=== PATIENT | female | born 1985 | race Caucasian/White ===

== ENCOUNTER 2020-10-12 13:24 | Inpatient (IN) | payer BC, SELFPAY ==
[~2020-10-12] VITALS: Ht 121.9 cm; Wt 58.1 kg
[2020-10-12 14:10] VITALS: BP_SYST 94
[2020-10-12 15:39] LABS: BASOPHILS % (AUTO) 0.1 % (0.0-2.0); HEMATOCRIT 25.8 % (36-48); HEMOGLOBIN 8.3 g/dL (12.0-16.0); LYMPHOCYTES % (AUTO) 4.8 % (20.5-51.5); MEAN CORPUSCULAR HEMOGLOBIN 26 pg (27-31); MEAN CORPUSCULAR HGB CONC 32 % (32-36); MEAN CORPUSCULAR VOLUME 79 fL (79.0-98.0); MONOCYTES # (AUTO) 0.7 K/uL (0.0-1.0); MONOCYTES % (AUTO) 3.5 % (1.7-9.3); NEUTROPHILS # (AUTO) 18.5 K/uL (1.8-7.7); NEUTROPHILS % (AUTO) 91.6 % (40.0-70.0); PLATELET COUNT (AUTO) 410 K/uL (130-430); RED BLOOD CELL COUNT(AUTO) 3.25 MIL/uL (4.2-6.2); WHITE BLOOD COUNT (AUTO) 20.2 K/uL (4.8-10.8)
[2020-10-12 16:09] LABS: CALCIUM 7.8 mg/dL (8.4-11.0); CREATININE 0.55 mg/dL (0.55-1.30)
[2020-10-12 16:15] LABS: ALBUMIN 1.6 g/dL (3.4-4.8); TOTAL BILIRUBIN 1.1 mg/dL (0.0-1.0)
[2020-10-12 16:18] LABS: POTASSIUM 2.4 mmol/L (3.5-5.1)
[2020-10-12] MEDS ORDERED: PIPERACILLIN/TAZOBACTAM 3.375 GM/VIAL (ZOSYN) IV ONE (16:26)
[2020-10-12] MEDS ORDERED: VANCOMYCIN HCL 1000 MG/VIAL IV ONE (16:27)
[2020-10-12] MEDS ORDERED: PIPERACILLIN/TAZO 3.375 GM in NS 50 ML IV ONE (16:30)
[2020-10-12] MEDS ORDERED: CLINDAMYCIN 900 MG in D5W 100 ML IV ONE (16:30)
[2020-10-12] MEDS ORDERED: VANCOMYCIN HCL 1,000 MG in NS 250 ML IV ONE (16:30)
[2020-10-12 16:31] LABS: INR 1.2 (0.8-1.2); PROTHROMBIN TIME 12.4 SECS (9.5-12.5)
[2020-10-12] MEDS ORDERED: MAGNESIUM SULFATE 50 ML IV ONE ×2 (16:45→18:00)
[2020-10-12] MEDS ORDERED: KCL 40 mEq in D5W 1000 mL 1,000 ML IV ONE (16:45)
[2020-10-12] MEDS ORDERED: POTASSIUM CHLORIDE 20 MEQ TAB.PRT.SR PO ONE (16:45)
[2020-10-12] MEDS ORDERED: NOREPINEPHRINE 4 MG/4 ML VIAL IV ONE (18:40)
[2020-10-12] MEDS ORDERED: D5/0.45 NS 1,000 ML IV SCH (19:15)
[2020-10-12] MEDS ORDERED: NOREPINEPHRINE BITARTRATE 4 MG in NS 246 ML IV ONE (19:15)
[2020-10-12] MEDS: LR 1,000 ML IV SCH (19:30)
[2020-10-12] MEDS ORDERED: ACETAMINOPHEN 325 MG TABLET PO PRN (22:30)
[2020-10-12] MEDS ORDERED: HYDROcodone/ACETAMIN 5-325 MG TAB (NORCO/ VICODIN) PO PRN (22:30)
[2020-10-12] MEDS ORDERED: LORazepam 2 MG/ML VIAL IVP PRN (22:30)
[2020-10-12] MEDS ORDERED: HYDROcodone/ACETAMIN 10-325 MG TAB PO PRN (22:30)
[2020-10-12] MEDS ORDERED: MORPHINE 2 MG/ML INJ. SYRINGE IVP PRN (22:30)
[2020-10-12] MEDS ORDERED: NALOXONE HCL 0.4 MG/ML AMP (NARCAN) IVP PRN ×3 (22:30)
[2020-10-13] MEDS: ONDANSETRON HCL 4 MG/2 ML VIAL IVP PRN (00:39)
[2020-10-13 05:04] LABS: BASOPHILS % (AUTO) 0.2 % (0.0-2.0); EOSINOPHILS % (AUTO) 0.2 % (0.0-4.0); HEMATOCRIT 23.8 % (36-48); HEMOGLOBIN 7.6 g/dL (12.0-16.0); LYMPHOCYTES # (AUTO) 0.7 K/uL (1.0-5.5); LYMPHOCYTES % (AUTO) 3.7 % (20.5-51.5); MEAN CORPUSCULAR HEMOGLOBIN 26 pg (27-31); MEAN CORPUSCULAR HGB CONC 32 % (32-36); MEAN CORPUSCULAR VOLUME 80 fL (79.0-98.0); MONOCYTES # (AUTO) 1.3 K/uL (0.0-1.0); NEUTROPHILS # (AUTO) 16.8 K/uL (1.8-7.7); NEUTROPHILS % (AUTO) 88.9 % (40.0-70.0); PLATELET COUNT (AUTO) 314 K/uL (130-430); RED CELL DISTRIBUTION WIDTH 15.9 % (9.0-15.0); WHITE BLOOD COUNT (AUTO) 18.9 K/uL (4.8-10.8)
[2020-10-13 05:34] LABS: ALBUMIN 1.4 g/dL (3.4-4.8); CALCIUM 7.4 mg/dL (8.4-11.0); CREATININE 0.48 mg/dL (0.55-1.30); PHOSPHORUS 1.4 mg/dL (2.7-4.5); POTASSIUM 3.2 mmol/L (3.5-5.1); TOTAL BILIRUBIN 0.5 mg/dL (0.0-1.0)
[2020-10-13 05:52] LABS: ERYTHROCYTE SEDIMENTATION RATE 105 MM/HR (0-20)
[2020-10-13] MEDS ORDERED: HYDROmorphone 1 MG INJ. 1 MG/ML AMPUL IVP PRN (12:30)
[2020-10-13] MEDS ORDERED: ONDANSETRON HCL 4 MG/2 ML VIAL IVP PRN ×2 (12:30→17:30)
[2020-10-13] MEDS ORDERED: KETOROLAC TROMETHAMINE 30 MG VIAL IVP PRN (12:30)
[2020-10-13] MEDS ORDERED: MEPERIDINE HCL/PF 25 MG/ML DISP.SYRIN IVP PRN (12:30)
[2020-10-13] MEDS ORDERED: NACL 0.9% 1,000 ML IV SCH (12:30)
[2020-10-13] MEDS ORDERED: BUPIVACAINE /EPINEPHRINE/PF 0.25% 30 ML VIAL INJ ONE (13:35)
[2020-10-13] MEDS ORDERED: fentaNYL CITRATE/PF 100 MCG/2 ML AMP ONE (13:35)
[2020-10-13] MEDS ORDERED: LR 1,000 ML IV.SOLN IV ONE (13:35)
[2020-10-13] MEDS ORDERED: WATER FOR IRRIGATION,STERILE 1,000 ML IRRIG.SOLN IR ONE (13:35)
[2020-10-13] MEDS ORDERED: MIDAZOLAM HCL 5 MG/ML VIAL (VERSED) IV ONE (13:35)
[2020-10-13] MEDS ORDERED: NALOXONE HCL 0.4 MG/ML AMP (NARCAN) IVP PRN ×4 (14:15→17:30)
[2020-10-13] MEDS ORDERED: ACETAMINOPHEN 325 MG TABLET PO PRN ×3 (14:15→17:30)
[2020-10-13] MEDS ORDERED: D5/0.45 NS 1,000 ML IV SCH (14:15)
[2020-10-13] MEDS ORDERED: HYDROcodone/ACETAMIN 5-325 MG TAB (NORCO/ VICODIN) PO PRN ×2 (14:15→17:30)
[2020-10-13 16:00] VITALS: BP_SYST 149
[2020-10-13] MEDS: LR 1,000 ML IV SCH (16:00)
[2020-10-13] MEDS: VANCOMYCIN HCL 1,000 MG in NS 250 ML IV SCH ×2 (17:29→17:36)
[2020-10-13] MEDS ORDERED: LORazepam 2 MG/ML VIAL IVP PRN (17:30)
[2020-10-13] MEDS ORDERED: MORPHINE 2 MG/ML INJ. SYRINGE IVP PRN (17:30)
[2020-10-13] MEDS ORDERED: HYDROcodone/ACETAMIN 10-325 MG TAB PO PRN (17:30)
[2020-10-13] MEDS: PIPERACILLIN/TAZO 3.375/DEX-IS 50 ML IV SCH (17:35)
[2020-10-13 20:20] VITALS: BP_SYST 94
[2020-10-14 00:31] VITALS: BP_SYST 99
[2020-10-14] MEDS: PIPERACILLIN/TAZO 3.375/DEX-IS 50 ML IV SCH ×4 (00:55→18:42)
[2020-10-14] MEDS: LR 1,000 ML IV SCH ×3 (00:56→22:38)
[2020-10-14 08:00] VITALS: BP_SYST 98
[2020-10-14 08:02] LABS: BASOPHILS # (AUTO) 0.1 K/uL (0.0-0.2); BASOPHILS % (AUTO) 0.6 % (0.0-2.0); EOSINOPHILS # (AUTO) 0.1 K/uL (0.0-0.4); EOSINOPHILS % (AUTO) 0.9 % (0.0-4.0); HEMATOCRIT 23.4 % (36-48); HEMOGLOBIN 7.5 g/dL (12.0-16.0); LYMPHOCYTES # (AUTO) 1.7 K/uL (1.0-5.5); LYMPHOCYTES % (AUTO) 11.7 % (20.5-51.5); MEAN CORPUSCULAR HEMOGLOBIN 26 pg (27-31); MEAN CORPUSCULAR HGB CONC 32 % (32-36); MEAN CORPUSCULAR VOLUME 80 fL (79.0-98.0); MONOCYTES % (AUTO) 6.8 % (1.7-9.3); PLATELET COUNT (AUTO) 226 K/uL (130-430); RED BLOOD CELL COUNT(AUTO) 2.92 MIL/uL (4.2-6.2); RED CELL DISTRIBUTION WIDTH 16.4 % (9.0-15.0)
[2020-10-14 08:24] LABS: ALBUMIN 1.2 g/dL (3.4-4.8); CALCIUM 8.1 mg/dL (8.4-11.0); CREATININE 0.28 mg/dL (0.55-1.30); PHOSPHORUS 3.1 mg/dL (2.7-4.5); POTASSIUM 3.1 mmol/L (3.5-5.1); TOTAL BILIRUBIN 0.3 mg/dL (0.0-1.0)
[2020-10-14 09:37] LABS: C-REACTIVE PROTEIN QUANT 37.4 mg/dL (0-0.5)
[2020-10-14 11:06] LABS: ERYTHROCYTE SEDIMENTATION RATE 95 MM/HR (0-20)
[2020-10-14 12:01] VITALS: BP_SYST 94
[2020-10-14] MEDS: NORMAL SALINE 5 ML DISP.SYRIN IVF SCH ×2 (13:24→22:50)
[2020-10-14] MEDS ORDERED: POTASSIUM CHLORIDE 20 MEQ TAB.PRT.SR PO ONE (15:15)
[2020-10-14 16:00] VITALS: BP_SYST 106
[2020-10-14] MEDS ORDERED: GENTAMICIN 100 mg/50 mL NS 100 ML IV ONE (20:37)
[2020-10-14 21:00] VITALS: BP_SYST 105
[2020-10-14] MEDS ORDERED: GENTAMICIN SULFATE 400 MG in NS 100 ML IV ONE (21:00)
[2020-10-14] MEDS ORDERED: GENTAMICIN 80 mg/50 mL NS 50 ML IV ONE (21:06)
[2020-10-14] MEDS ORDERED: GENTAMICIN 120 mg/100 mL NS 100 ML IV ONE (21:07)
[2020-10-15 00:13] VITALS: BP_SYST 110
[2020-10-15] MEDS: PIPERACILLIN/TAZO 3.375/DEX-IS 50 ML IV SCH ×4 (01:32→18:09)
[2020-10-15] MEDS: NORMAL SALINE 5 ML DISP.SYRIN IVF SCH ×3 (05:09→23:18)
[2020-10-15] MEDS ORDERED: POTASSIUM CHLORIDE 20 MEQ TAB.PRT.SR PO ONE (07:45)
[2020-10-15 09:07] LABS: BASOPHILS # (AUTO) 0.1 K/uL (0.0-0.2); BASOPHILS % (AUTO) 0.9 % (0.0-2.0); EOSINOPHILS # (AUTO) 0.1 K/uL (0.0-0.4); EOSINOPHILS % (AUTO) 0.3 % (0.0-4.0); HEMOGLOBIN 8.2 g/dL (12.0-16.0); LYMPHOCYTES # (AUTO) 2.2 K/uL (1.0-5.5); LYMPHOCYTES % (AUTO) 13.7 % (20.5-51.5); MEAN CORPUSCULAR HEMOGLOBIN 25 pg (27-31); MEAN CORPUSCULAR HGB CONC 32 % (32-36); MEAN CORPUSCULAR VOLUME 79 fL (79.0-98.0); MONOCYTES % (AUTO) 6.6 % (1.7-9.3); NEUTROPHILS # (AUTO) 12.5 K/uL (1.8-7.7); NEUTROPHILS % (AUTO) 78.5 % (40.0-70.0); PLATELET COUNT (AUTO) 354 K/uL (130-430); RED BLOOD CELL COUNT(AUTO) 3.28 MIL/uL (4.2-6.2); RED CELL DISTRIBUTION WIDTH 16.1 % (9.0-15.0); WHITE BLOOD COUNT (AUTO) 15.9 K/uL (4.8-10.8)
[2020-10-15] MEDS ORDERED: POTASSIUM CHLORIDE 20 MEQ TAB.PRT.SR ONE (09:17)
[2020-10-15 09:29] LABS: ALBUMIN 1.2 g/dL (3.4-4.8); CALCIUM 7.6 mg/dL (8.4-11.0); CREATININE 0.37 mg/dL (0.55-1.30); POTASSIUM 3.4 mmol/L (3.5-5.1); TOTAL BILIRUBIN 0.5 mg/dL (0.0-1.0)
[2020-10-15 10:15] LABS: C-REACTIVE PROTEIN QUANT 27.3 mg/dL (0-0.5)
[2020-10-15 11:04] LABS: ERYTHROCYTE SEDIMENTATION RATE 97 MM/HR (0-20)
[2020-10-15] MEDS: LR 1,000 ML IV SCH ×3 (12:09→23:17)
[2020-10-15 12:52] VITALS: BP_SYST 110
[2020-10-15 16:00] VITALS: BP_SYST 83
[2020-10-15] MEDS ORDERED: NACL 0.9% 1,000 ML IV ONE (17:15)
[2020-10-15 18:00] VITALS: BP_SYST 104
[2020-10-15 19:04] VITALS: BP_SYST 90
[2020-10-15 22:00] VITALS: BP_SYST 114
[2020-10-15] MEDS ORDERED: GENTAMICIN SULFATE 400 MG in NS 100 ML IV SCH (22:00)
[2020-10-15] MEDS ORDERED: ACETAMINOPHEN 325 MG TABLET ONE (23:16)
[2020-10-16] VITALS: BP_SYST 106
[2020-10-16] MEDS: PIPERACILLIN/TAZO 3.375/DEX-IS 50 ML IV SCH ×4 (01:00→18:06)
[2020-10-16] MEDS: LR 1,000 ML IV SCH ×2 (03:00→12:32)
[2020-10-16] MEDS: NORMAL SALINE 5 ML DISP.SYRIN IVF SCH ×3 (06:26→23:28)
[2020-10-16 06:35] LABS: BASOPHILS % (AUTO) 0.1 % (0.0-2.0); EOSINOPHILS % (AUTO) 0.1 % (0.0-4.0); LYMPHOCYTES # (AUTO) 1.4 K/uL (1.0-5.5); LYMPHOCYTES % (AUTO) 8.2 % (20.5-51.5); MEAN CORPUSCULAR HEMOGLOBIN 25 pg (27-31); MEAN CORPUSCULAR HGB CONC 32 % (32-36); MEAN CORPUSCULAR VOLUME 79 fL (79.0-98.0); MONOCYTES # (AUTO) 0.5 K/uL (0.0-1.0); MONOCYTES % (AUTO) 2.9 % (1.7-9.3); NEUTROPHILS # (AUTO) 15.1 K/uL (1.8-7.7); NEUTROPHILS % (AUTO) 88.7 % (40.0-70.0); PLATELET COUNT (AUTO) 226 K/uL (130-430); RED BLOOD CELL COUNT(AUTO) 2.71 MIL/uL (4.2-6.2); RED CELL DISTRIBUTION WIDTH 16.5 % (9.0-15.0); WHITE BLOOD COUNT (AUTO) 17.1 K/uL (4.8-10.8)
[2020-10-16 08:29] VITALS: BP_SYST 98
[2020-10-16 08:31] LABS: CALCIUM 7.4 mg/dL (8.4-11.0); POTASSIUM 3.5 mmol/L (3.5-5.1)
[2020-10-16 09:20] LABS: CREATININE 0.33 mg/dL (0.55-1.30)
[2020-10-16 09:23] LABS: HEMOGLOBIN 6.8 g/dL (12.0-16.0)
[2020-10-16 09:24] LABS: HEMATOCRIT 21.3 % (36-48)
[2020-10-16 10:11] LABS: ERYTHROCYTE SEDIMENTATION RATE 69 MM/HR (0-20)
[2020-10-16 10:39] LABS: C-REACTIVE PROTEIN QUANT 17.8 mg/dL (0-0.5)
[2020-10-16 12:10] VITALS: BP_SYST 92
[2020-10-16 16:17] VITALS: BP_SYST 95
[2020-10-16 20:00] VITALS: BP_SYST 91
[2020-10-17] VITALS: BP_SYST 103
[2020-10-17] MEDS: NORMAL SALINE 5 ML DISP.SYRIN IVF SCH ×3 (06:00→22:00)
[2020-10-17] MEDS: PIPERACILLIN/TAZO 3.375/DEX-IS 50 ML IV SCH ×5 (06:00→23:49)
[2020-10-17 07:16] LABS: BASOPHILS % (AUTO) 0.2 % (0.0-2.0); EOSINOPHILS # (AUTO) 0.1 K/uL (0.0-0.4); EOSINOPHILS % (AUTO) 0.4 % (0.0-4.0); HEMATOCRIT 26.3 % (36-48); HEMOGLOBIN 8.7 g/dL (12.0-16.0); LYMPHOCYTES # (AUTO) 1.5 K/uL (1.0-5.5); LYMPHOCYTES % (AUTO) 9.5 % (20.5-51.5); MEAN CORPUSCULAR HEMOGLOBIN 27 pg (27-31); MEAN CORPUSCULAR HGB CONC 33 % (32-36); MEAN CORPUSCULAR VOLUME 82 fL (79.0-98.0); MONOCYTES % (AUTO) 6.2 % (1.7-9.3); NEUTROPHILS # (AUTO) 13.5 K/uL (1.8-7.7); NEUTROPHILS % (AUTO) 83.7 % (40.0-70.0); PLATELET COUNT (AUTO) 246 K/uL (130-430); RED BLOOD CELL COUNT(AUTO) 3.23 MIL/uL (4.2-6.2); RED CELL DISTRIBUTION WIDTH 17.4 % (9.0-15.0); WHITE BLOOD COUNT (AUTO) 16.1 K/uL (4.8-10.8)
[2020-10-17 07:56] LABS: CREATININE 0.36 mg/dL (0.55-1.30); POTASSIUM 3.7 mmol/L (3.5-5.1)
[2020-10-17 08:00] VITALS: BP_SYST 87
[2020-10-17 10:04] LABS: INR 1.1 (0.8-1.2); PROTHROMBIN TIME 11.7 SECS (9.5-12.5)
[2020-10-17 12:05] LABS: ERYTHROCYTE SEDIMENTATION RATE 45 MM/HR (0-20)
[2020-10-17 12:30] VITALS: BP_SYST 105
[2020-10-17 12:40] LABS: C-REACTIVE PROTEIN QUANT 18.1 mg/dL (0-0.5)
[2020-10-17 14:30] VITALS: BP_SYST 102
[2020-10-17] MEDS: LR 1,000 ML IV SCH ×2 (15:13→23:50)
[2020-10-17 16:00] VITALS: BP_SYST 102
[2020-10-17] MEDS: ACETAMINOPHEN 325 MG TABLET PO PRN (16:01)
[2020-10-17] MEDS: ONDANSETRON HCL 4 MG/2 ML VIAL IVP PRN (19:47)
[2020-10-17 20:00] VITALS: BP_SYST 90
[2020-10-18] VITALS: BP_SYST 94
[2020-10-18] MEDS: NORMAL SALINE 5 ML DISP.SYRIN IVF SCH ×3 (05:41→20:40)
[2020-10-18] MEDS: LR 1,000 ML IV SCH ×2 (05:42→19:09)
[2020-10-18] MEDS: PIPERACILLIN/TAZO 3.375/DEX-IS 50 ML IV SCH ×3 (05:43→19:09)
[2020-10-18 06:22] LABS: BASOPHILS % (AUTO) 0.3 % (0.0-2.0); EOSINOPHILS # (AUTO) 0.1 K/uL (0.0-0.4); EOSINOPHILS % (AUTO) 1.2 % (0.0-4.0); HEMATOCRIT 27.3 % (36-48); HEMOGLOBIN 8.9 g/dL (12.0-16.0); LYMPHOCYTES # (AUTO) 1.9 K/uL (1.0-5.5); LYMPHOCYTES % (AUTO) 15.6 % (20.5-51.5); MEAN CORPUSCULAR HEMOGLOBIN 27 pg (27-31); MEAN CORPUSCULAR HGB CONC 33 % (32-36); MEAN CORPUSCULAR VOLUME 83 fL (79.0-98.0); MONOCYTES # (AUTO) 1.2 K/uL (0.0-1.0); MONOCYTES % (AUTO) 10.4 % (1.7-9.3); NEUTROPHILS # (AUTO) 8.6 K/uL (1.8-7.7); NEUTROPHILS % (AUTO) 72.5 % (40.0-70.0); PLATELET COUNT (AUTO) 231 K/uL (130-430); RED CELL DISTRIBUTION WIDTH 17.9 % (9.0-15.0); WHITE BLOOD COUNT (AUTO) 11.9 K/uL (4.8-10.8)
[2020-10-18 07:25] LABS: ALBUMIN 1.1 g/dL (3.4-4.8); CALCIUM 8.1 mg/dL (8.4-11.0); POTASSIUM 3.8 mmol/L (3.5-5.1); TOTAL BILIRUBIN 0.4 mg/dL (0.0-1.0)
[2020-10-18 08:07] LABS: ERYTHROCYTE SEDIMENTATION RATE 45 MM/HR (0-20)
[2020-10-18 09:31] LABS: CREATININE 0.29 mg/dL (0.55-1.30)
[2020-10-18 10:57] LABS: C-REACTIVE PROTEIN QUANT 21.8 mg/dL (0-0.5)
[2020-10-18 20:00] VITALS: BP_SYST 112
[2020-10-19] MEDS: PIPERACILLIN/TAZO 3.375/DEX-IS 50 ML IV SCH ×4 (00:02→17:48)
[2020-10-19] MEDS: LR 1,000 ML IV SCH ×3 (00:03→20:57)
[2020-10-19 01:07] VITALS: BP_SYST 107
[2020-10-19] MEDS: ACETAMINOPHEN 325 MG TABLET PO PRN (05:19)
[2020-10-19] MEDS: NORMAL SALINE 5 ML DISP.SYRIN IVF SCH ×3 (05:32→20:57)
[2020-10-19 06:44] LABS: BASOPHILS % (AUTO) 0.2 % (0.0-2.0); EOSINOPHILS # (AUTO) 0.1 K/uL (0.0-0.4); EOSINOPHILS % (AUTO) 0.5 % (0.0-4.0); HEMATOCRIT 26.9 % (36-48); HEMOGLOBIN 8.7 g/dL (12.0-16.0); LYMPHOCYTES # (AUTO) 1.8 K/uL (1.0-5.5); LYMPHOCYTES % (AUTO) 13.2 % (20.5-51.5); MEAN CORPUSCULAR HEMOGLOBIN 27 pg (27-31); MEAN CORPUSCULAR HGB CONC 33 % (32-36); MEAN CORPUSCULAR VOLUME 82 fL (79.0-98.0); MONOCYTES # (AUTO) 1.4 K/uL (0.0-1.0); MONOCYTES % (AUTO) 9.8 % (1.7-9.3); NEUTROPHILS # (AUTO) 10.6 K/uL (1.8-7.7); NEUTROPHILS % (AUTO) 76.3 % (40.0-70.0); PLATELET COUNT (AUTO) 273 K/uL (130-430); RED BLOOD CELL COUNT(AUTO) 3.27 MIL/uL (4.2-6.2); RED CELL DISTRIBUTION WIDTH 18.2 % (9.0-15.0); WHITE BLOOD COUNT (AUTO) 13.9 K/uL (4.8-10.8)
[2020-10-19 07:42] LABS: CALCIUM 7.6 mg/dL (8.4-11.0); CREATININE 0.3 mg/dL (0.55-1.30); POTASSIUM 3.7 mmol/L (3.5-5.1)
[2020-10-19 08:00] VITALS: BP_SYST 96
[2020-10-19 08:55] LABS: ERYTHROCYTE SEDIMENTATION RATE 48 MM/HR (0-20)
[2020-10-19 12:06] VITALS: BP_SYST 94
[2020-10-19 12:48] LABS: C-REACTIVE PROTEIN QUANT 19.5 mg/dL (0-0.5)
[2020-10-19 16:03] VITALS: BP_SYST 105
[2020-10-19 20:12] VITALS: BP_SYST 95
[2020-10-19 20:14] VITALS: BP_SYST 95
[2020-10-20] MEDS: PIPERACILLIN/TAZO 3.375/DEX-IS 50 ML IV SCH ×5 (00:02→23:52)
[2020-10-20 00:07] VITALS: BP_SYST 102
[2020-10-20] MEDS: NORMAL SALINE 5 ML DISP.SYRIN IVF SCH ×3 (06:09→21:17)
[2020-10-20 07:38] LABS: CALCIUM 7.7 mg/dL (8.4-11.0); CREATININE 0.31 mg/dL (0.55-1.30)
[2020-10-20 07:47] LABS: BASOPHILS % (AUTO) 0.3 % (0.0-2.0); EOSINOPHILS # (AUTO) 0.1 K/uL (0.0-0.4); EOSINOPHILS % (AUTO) 0.5 % (0.0-4.0); HEMATOCRIT 29.4 % (36-48); HEMOGLOBIN 9.5 g/dL (12.0-16.0); LYMPHOCYTES # (AUTO) 1.8 K/uL (1.0-5.5); LYMPHOCYTES % (AUTO) 15.2 % (20.5-51.5); MEAN CORPUSCULAR HEMOGLOBIN 27 pg (27-31); MEAN CORPUSCULAR HGB CONC 32 % (32-36); MEAN CORPUSCULAR VOLUME 83 fL (79.0-98.0); MONOCYTES # (AUTO) 1.1 K/uL (0.0-1.0); MONOCYTES % (AUTO) 9.1 % (1.7-9.3); NEUTROPHILS # (AUTO) 8.8 K/uL (1.8-7.7); NEUTROPHILS % (AUTO) 74.9 % (40.0-70.0); PLATELET COUNT (AUTO) 335 K/uL (130-430); RED BLOOD CELL COUNT(AUTO) 3.56 MIL/uL (4.2-6.2); RED CELL DISTRIBUTION WIDTH 18.3 % (9.0-15.0); WHITE BLOOD COUNT (AUTO) 11.7 K/uL (4.8-10.8)
[2020-10-20 07:48] LABS: C-REACTIVE PROTEIN QUANT 20.6 mg/dL (0-0.5)
[2020-10-20 08:00] VITALS: BP_SYST 103
[2020-10-20] MEDS: LR 1,000 ML IV SCH ×2 (08:10→18:11)
[2020-10-20 08:44] LABS: ERYTHROCYTE SEDIMENTATION RATE 56 MM/HR (0-20)
[2020-10-20 12:00] VITALS: BP_SYST 91
[2020-10-20 16:00] VITALS: BP_SYST 89
[2020-10-20 20:12] VITALS: BP_SYST 94
[2020-10-20 20:15] VITALS: BP_SYST 94
[2020-10-21 00:03] VITALS: BP_SYST 93
[2020-10-21] MEDS: PIPERACILLIN/TAZO 3.375/DEX-IS 50 ML IV SCH ×2 (05:14→12:35)
[2020-10-21] MEDS: NORMAL SALINE 5 ML DISP.SYRIN IVF SCH ×3 (05:15→22:00)
[2020-10-21] MEDS: LR 1,000 ML IV SCH ×3 (05:18→23:08)
[2020-10-21 07:03] LABS: BASOPHILS % (AUTO) 0.3 % (0.0-2.0); EOSINOPHILS # (AUTO) 0.1 K/uL (0.0-0.4); EOSINOPHILS % (AUTO) 0.5 % (0.0-4.0); HEMATOCRIT 29.7 % (36-48); HEMOGLOBIN 9.8 g/dL (12.0-16.0); LYMPHOCYTES # (AUTO) 2.1 K/uL (1.0-5.5); LYMPHOCYTES % (AUTO) 19.1 % (20.5-51.5); MEAN CORPUSCULAR HEMOGLOBIN 28 pg (27-31); MEAN CORPUSCULAR HGB CONC 33 % (32-36); MEAN CORPUSCULAR VOLUME 83 fL (79.0-98.0); MONOCYTES # (AUTO) 1.2 K/uL (0.0-1.0); MONOCYTES % (AUTO) 10.7 % (1.7-9.3); NEUTROPHILS # (AUTO) 7.5 K/uL (1.8-7.7); PLATELET COUNT (AUTO) 414 K/uL (130-430); RED BLOOD CELL COUNT(AUTO) 3.58 MIL/uL (4.2-6.2); RED CELL DISTRIBUTION WIDTH 18.3 % (9.0-15.0); WHITE BLOOD COUNT (AUTO) 10.8 K/uL (4.8-10.8)
[2020-10-21 07:12] LABS: CALCIUM 7.9 mg/dL (8.4-11.0); CREATININE 0.36 mg/dL (0.55-1.30); POTASSIUM 4.1 mmol/L (3.5-5.1)
[2020-10-21 08:20] LABS: C-REACTIVE PROTEIN QUANT 19.6 mg/dL (0-0.5)
[2020-10-21 09:35] LABS: ERYTHROCYTE SEDIMENTATION RATE 63 MM/HR (0-20)
[2020-10-21 11:45] LABS: NEUTROPHILS % (AUTO) 69.4 % (40.0-70.0)
[2020-10-21 12:00] VITALS: BP_SYST 108
[2020-10-21] MEDS: AMPICILLIN SODIUM/SULBACTAM NA 3 GM in NS 100 ML IV SCH ×3 (13:26→23:05)
[2020-10-21 16:03] VITALS: BP_SYST 96
[2020-10-21 20:00] VITALS: BP_SYST 89
[2020-10-22 01:57] VITALS: BP_SYST 86
[2020-10-22] MEDS: AMPICILLIN SODIUM/SULBACTAM NA 3 GM in NS 100 ML IV SCH ×3 (05:36→18:06)
[2020-10-22] MEDS: NORMAL SALINE 5 ML DISP.SYRIN IVF SCH ×3 (05:36→19:43)
[2020-10-22 07:52] LABS: BASOPHILS # (AUTO) 0.1 K/uL (0.0-0.2); BASOPHILS % (AUTO) 0.7 % (0.0-2.0); EOSINOPHILS # (AUTO) 0.1 K/uL (0.0-0.4); EOSINOPHILS % (AUTO) 0.7 % (0.0-4.0); HEMATOCRIT 29.3 % (36-48); HEMOGLOBIN 9.6 g/dL (12.0-16.0); LYMPHOCYTES # (AUTO) 2.2 K/uL (1.0-5.5); LYMPHOCYTES % (AUTO) 18.1 % (20.5-51.5); MEAN CORPUSCULAR HEMOGLOBIN 27 pg (27-31); MEAN CORPUSCULAR HGB CONC 33 % (32-36); MEAN CORPUSCULAR VOLUME 82 fL (79.0-98.0); MONOCYTES # (AUTO) 1.1 K/uL (0.0-1.0); MONOCYTES % (AUTO) 9.5 % (1.7-9.3); NEUTROPHILS # (AUTO) 8.6 K/uL (1.8-7.7); PLATELET COUNT (AUTO) 435 K/uL (130-430); RED BLOOD CELL COUNT(AUTO) 3.56 MIL/uL (4.2-6.2); RED CELL DISTRIBUTION WIDTH 18.6 % (9.0-15.0); WHITE BLOOD COUNT (AUTO) 12.1 K/uL (4.8-10.8)
[2020-10-22 08:21] LABS: ALBUMIN 1.3 g/dL (3.4-4.8); CREATININE 0.28 mg/dL (0.55-1.30); POTASSIUM 3.9 mmol/L (3.5-5.1); TOTAL BILIRUBIN 0.3 mg/dL (0.0-1.0)
[2020-10-22 09:07] LABS: ERYTHROCYTE SEDIMENTATION RATE 64 MM/HR (0-20)
[2020-10-22 09:18] VITALS: BP_SYST 90
[2020-10-22 09:24] LABS: C-REACTIVE PROTEIN QUANT 21.2 mg/dL (0-0.5)
[2020-10-22] MEDS: LR 1,000 ML IV SCH ×2 (09:39→19:42)
[2020-10-22 12:44] VITALS: BP_SYST 98
[2020-10-22 16:00] VITALS: BP_SYST 96
[2020-10-22 20:52] VITALS: BP_SYST 96
[2020-10-23 00:17] VITALS: BP_SYST 95
[2020-10-23] MEDS: AMPICILLIN SODIUM/SULBACTAM NA 3 GM in NS 100 ML IV SCH ×4 (00:23→19:02)
[2020-10-23] MEDS: LR 1,000 ML IV SCH ×2 (05:18→15:30)
[2020-10-23] MEDS: NORMAL SALINE 5 ML DISP.SYRIN IVF SCH ×3 (05:18→20:09)
[2020-10-23 07:37] LABS: HEMATOCRIT 29.9 % (36-48); HEMOGLOBIN 9.7 g/dL (12.0-16.0); MEAN CORPUSCULAR HEMOGLOBIN 27 pg (27-31); MEAN CORPUSCULAR HGB CONC 32 % (32-36); MEAN CORPUSCULAR VOLUME 83 fL (79.0-98.0); PLATELET COUNT (AUTO) 484 K/uL (130-430); RED BLOOD CELL COUNT(AUTO) 3.61 MIL/uL (4.2-6.2); RED CELL DISTRIBUTION WIDTH 18.8 % (9.0-15.0); WHITE BLOOD COUNT (AUTO) 11.2 K/uL (4.8-10.8)
[2020-10-23 08:00] VITALS: BP_SYST 91
[2020-10-23 08:11] LABS: CALCIUM 8.2 mg/dL (8.4-11.0); CREATININE 0.34 mg/dL (0.55-1.30)
[2020-10-23 08:44] LABS: C-REACTIVE PROTEIN QUANT 22.5 mg/dL (0-0.5)
[2020-10-23 09:51] VITALS: BP_SYST 91
[2020-10-23 09:56] LABS: ERYTHROCYTE SEDIMENTATION RATE 69 MM/HR (0-20)
[2020-10-23 12:00] VITALS: BP_SYST 98
[2020-10-23 12:10] LABS: BAND % (MANUAL) 9 % (0-6)
[2020-10-23 12:11] LABS: BASOPHILS % (MANUAL) 0 % (0-2); EOSINOPHILS % (MANUAL) 0 % (0-7); LYMPHOCYTES % (MANUAL) 19 % (20-46); MONOCYTES % (MANUAL) 11 % (0-11)
[2020-10-23 17:01] VITALS: BP_SYST 91
[2020-10-23 20:31] VITALS: BP_SYST 101
[2020-10-24] VITALS: BP_SYST 109
[2020-10-24] MEDS: AMPICILLIN SODIUM/SULBACTAM NA 3 GM in NS 100 ML IV SCH ×5 (00:02→23:25)
[2020-10-24] MEDS: LR 1,000 ML IV SCH ×3 (00:03→21:30)
[2020-10-24] MEDS: NORMAL SALINE 5 ML DISP.SYRIN IVF SCH ×3 (05:25→21:38)
[2020-10-24 08:00] VITALS: BP_SYST 92
[2020-10-24 08:00] LABS: BASOPHILS # (AUTO) 0.1 K/uL (0.0-0.2); BASOPHILS % (AUTO) 0.7 % (0.0-2.0); EOSINOPHILS # (AUTO) 0.1 K/uL (0.0-0.4); EOSINOPHILS % (AUTO) 0.9 % (0.0-4.0); HEMATOCRIT 29.5 % (36-48); HEMOGLOBIN 9.8 g/dL (12.0-16.0); LYMPHOCYTES # (AUTO) 2.4 K/uL (1.0-5.5); LYMPHOCYTES % (AUTO) 23.2 % (20.5-51.5); MEAN CORPUSCULAR HEMOGLOBIN 28 pg (27-31); MEAN CORPUSCULAR HGB CONC 33 % (32-36); MEAN CORPUSCULAR VOLUME 83 fL (79.0-98.0); MONOCYTES # (AUTO) 1.2 K/uL (0.0-1.0); MONOCYTES % (AUTO) 11.6 % (1.7-9.3); NEUTROPHILS # (AUTO) 6.5 K/uL (1.8-7.7); PLATELET COUNT (AUTO) 520 K/uL (130-430); RED BLOOD CELL COUNT(AUTO) 3.55 MIL/uL (4.2-6.2); RED CELL DISTRIBUTION WIDTH 18.7 % (9.0-15.0); WHITE BLOOD COUNT (AUTO) 10.2 K/uL (4.8-10.8)
[2020-10-24 08:16] LABS: NEUTROPHILS % (AUTO) 63.6 % (40.0-70.0)
[2020-10-24 08:21] LABS: CALCIUM 8.5 mg/dL (8.4-11.0); CREATININE 0.36 mg/dL (0.55-1.30); POTASSIUM 4.1 mmol/L (3.5-5.1)
[2020-10-24 09:45] LABS: C-REACTIVE PROTEIN QUANT 18.5 mg/dL (0-0.5)
[2020-10-24 10:38] LABS: ERYTHROCYTE SEDIMENTATION RATE 74 MM/HR (0-20)
[2020-10-24 12:00] VITALS: BP_SYST 95
[2020-10-24 16:00] VITALS: BP_SYST 97
[2020-10-24 20:00] VITALS: BP_SYST 111
[2020-10-25 00:04] VITALS: BP_SYST 108
[2020-10-25] MEDS: NORMAL SALINE 5 ML DISP.SYRIN IVF SCH ×3 (05:15→22:00)
[2020-10-25] MEDS: AMPICILLIN SODIUM/SULBACTAM NA 3 GM in NS 100 ML IV SCH ×3 (05:15→18:24)
[2020-10-25] MEDS: LR 1,000 ML IV SCH ×2 (06:48→17:37)
[2020-10-25 06:49] LABS: BILIRUBIN,URINE NEGATIVE (NEGATIVE); BLOOD, URINE 2+ (NEGATIVE); CLARITY/URINE CLEAR (CLEAR); COLOR,URINE YELLOW (YELLOW); GLUCOSE,URINE NEGATIVE (NEGATIVE); KETONES,URINE NEGATIVE (NEGATIVE); LEUKOCYTE ESTERASE ,URINE 1+ (NEGATIVE); NITRITE, URINE NEGATIVE (NEGATIVE); PH,URINE 7.5 (5.0-8.0); PROTEIN URINE NEGATIVE (NEGATIVE); UROBILINOGEN,URINE 0.2 (0.2-1.0)
[2020-10-25 08:02] LABS: BACTERIA,URINE None Seen /HPF (None Seen)
[2020-10-25 08:05] LABS: TRICHOMONAS,URINE None Seen /HPF (None Seen); YEAST,URINE Moderate /HPF (None Seen)
[2020-10-25 08:46] LABS: BASOPHILS # (AUTO) 0.1 K/uL (0.0-0.2); BASOPHILS % (AUTO) 0.7 % (0.0-2.0); EOSINOPHILS # (AUTO) 0.1 K/uL (0.0-0.4); EOSINOPHILS % (AUTO) 0.9 % (0.0-4.0); HEMATOCRIT 29.6 % (36-48); HEMOGLOBIN 9.8 g/dL (12.0-16.0); LYMPHOCYTES % (AUTO) 20.5 % (20.5-51.5); MEAN CORPUSCULAR HEMOGLOBIN 27 pg (27-31); MEAN CORPUSCULAR HGB CONC 33 % (32-36); MEAN CORPUSCULAR VOLUME 82 fL (79.0-98.0); MONOCYTES # (AUTO) 1.4 K/uL (0.0-1.0); MONOCYTES % (AUTO) 14.5 % (1.7-9.3); NEUTROPHILS # (AUTO) 6.2 K/uL (1.8-7.7); NEUTROPHILS % (AUTO) 63.4 % (40.0-70.0); PLATELET COUNT (AUTO) 507 K/uL (130-430); RED CELL DISTRIBUTION WIDTH 18.3 % (9.0-15.0); WHITE BLOOD COUNT (AUTO) 9.8 K/uL (4.8-10.8)
[2020-10-25] MEDS ORDERED: FLUCONAZOLE 100 MG TABLET (DIFLUCAN) PO ONE (09:15)
[2020-10-25 09:24] LABS: ALBUMIN 1.4 g/dL (3.4-4.8); CALCIUM 8.3 mg/dL (8.4-11.0); CREATININE 0.34 mg/dL (0.55-1.30); POTASSIUM 3.8 mmol/L (3.5-5.1); TOTAL BILIRUBIN 0.3 mg/dL (0.0-1.0)
[2020-10-25 09:29] VITALS: BP_SYST 90
[2020-10-25 11:42] LABS: C-REACTIVE PROTEIN QUANT 18.2 mg/dL (0-0.5)
[2020-10-25 12:04] VITALS: BP_SYST 94
[2020-10-25 12:24] LABS: ERYTHROCYTE SEDIMENTATION RATE 63 MM/HR (0-20)
[2020-10-25 16:43] VITALS: BP_SYST 95
[2020-10-25 20:30] VITALS: BP_SYST 97
[2020-10-26 01:00] VITALS: BP_SYST 100
[2020-10-26] MEDS: AMPICILLIN SODIUM/SULBACTAM NA 3 GM in NS 100 ML IV SCH ×5 (01:14→23:36)
[2020-10-26] MEDS: LR 1,000 ML IV SCH ×2 (03:30→13:30)
[2020-10-26] MEDS: NORMAL SALINE 5 ML DISP.SYRIN IVF SCH ×3 (06:00→23:36)
[2020-10-26 06:48] LABS: BASOPHILS # (AUTO) 0.1 K/uL (0.0-0.2); BASOPHILS % (AUTO) 0.5 % (0.0-2.0); EOSINOPHILS # (AUTO) 0.1 K/uL (0.0-0.4); EOSINOPHILS % (AUTO) 0.8 % (0.0-4.0); HEMOGLOBIN 9.9 g/dL (12.0-16.0); LYMPHOCYTES # (AUTO) 1.9 K/uL (1.0-5.5); LYMPHOCYTES % (AUTO) 18.2 % (20.5-51.5); MEAN CORPUSCULAR HEMOGLOBIN 27 pg (27-31); MEAN CORPUSCULAR HGB CONC 33 % (32-36); MEAN CORPUSCULAR VOLUME 83 fL (79.0-98.0); MONOCYTES # (AUTO) 1.4 K/uL (0.0-1.0); MONOCYTES % (AUTO) 13.4 % (1.7-9.3); NEUTROPHILS # (AUTO) 6.9 K/uL (1.8-7.7); NEUTROPHILS % (AUTO) 67.1 % (40.0-70.0); PLATELET COUNT (AUTO) 520 K/uL (130-430); RED BLOOD CELL COUNT(AUTO) 3.62 MIL/uL (4.2-6.2); RED CELL DISTRIBUTION WIDTH 18.5 % (9.0-15.0); WHITE BLOOD COUNT (AUTO) 10.4 K/uL (4.8-10.8)
[2020-10-26 07:27] LABS: CALCIUM 8.2 mg/dL (8.4-11.0); CREATININE 0.28 mg/dL (0.55-1.30); POTASSIUM 3.6 mmol/L (3.5-5.1)
[2020-10-26 08:29] LABS: ERYTHROCYTE SEDIMENTATION RATE 66 MM/HR (0-20)
[2020-10-26 09:00] VITALS: BP_SYST 94
[2020-10-26] MEDS: FLUCONAZOLE 100 MG TABLET (DIFLUCAN) PO SCH (09:00)
[2020-10-26 12:00] VITALS: BP_SYST 93
[2020-10-26 12:26] LABS: C-REACTIVE PROTEIN QUANT 19.4 mg/dL (0-0.5)
[2020-10-26 17:48] VITALS: BP_SYST 102
[2020-10-26 20:00] VITALS: BP_SYST 105
[2020-10-26] MEDS: ACETAMINOPHEN 325 MG TABLET PO PRN (23:37)
[2020-10-27 00:40] VITALS: BP_SYST 92
[2020-10-27] MEDS: AMPICILLIN SODIUM/SULBACTAM NA 3 GM in NS 100 ML IV SCH ×3 (05:07→18:06)
[2020-10-27] MEDS: NORMAL SALINE 5 ML DISP.SYRIN IVF SCH ×3 (05:08→22:00)
[2020-10-27] MEDS: LR 1,000 ML IV SCH ×3 (05:08→19:30)
[2020-10-27 06:45] LABS: BASOPHILS # (AUTO) 0.1 K/uL (0.0-0.2); BASOPHILS % (AUTO) 0.7 % (0.0-2.0); EOSINOPHILS # (AUTO) 0.1 K/uL (0.0-0.4); HEMATOCRIT 29.1 % (36-48); HEMOGLOBIN 9.6 g/dL (12.0-16.0); LYMPHOCYTES # (AUTO) 2.4 K/uL (1.0-5.5); LYMPHOCYTES % (AUTO) 24.9 % (20.5-51.5); MEAN CORPUSCULAR HEMOGLOBIN 27 pg (27-31); MEAN CORPUSCULAR HGB CONC 33 % (32-36); MEAN CORPUSCULAR VOLUME 82 fL (79.0-98.0); MONOCYTES # (AUTO) 1.5 K/uL (0.0-1.0); MONOCYTES % (AUTO) 15.4 % (1.7-9.3); NEUTROPHILS # (AUTO) 5.6 K/uL (1.8-7.7); PLATELET COUNT (AUTO) 517 K/uL (130-430); RED BLOOD CELL COUNT(AUTO) 3.53 MIL/uL (4.2-6.2); RED CELL DISTRIBUTION WIDTH 18.9 % (9.0-15.0); WHITE BLOOD COUNT (AUTO) 9.6 K/uL (4.8-10.8)
[2020-10-27 07:08] LABS: ALBUMIN 1.5 g/dL (3.4-4.8); CALCIUM 8.7 mg/dL (8.4-11.0); CREATININE 0.23 mg/dL (0.55-1.30); POTASSIUM 3.9 mmol/L (3.5-5.1); TOTAL BILIRUBIN 0.2 mg/dL (0.0-1.0)
[2020-10-27 07:39] LABS: C-REACTIVE PROTEIN QUANT 18.8 mg/dL (0-0.5)
[2020-10-27 08:22] VITALS: BP_SYST 99
[2020-10-27 08:22] LABS: ERYTHROCYTE SEDIMENTATION RATE 75 MM/HR (0-20)
[2020-10-27] MEDS: FLUCONAZOLE 100 MG TABLET (DIFLUCAN) PO SCH (08:34)
[2020-10-27 11:59] VITALS: BP_SYST 95
[2020-10-27 12:45] VITALS: BP_SYST 96
[2020-10-27 16:00] VITALS: BP_SYST 100; BP_SYST 92
[2020-10-27 20:00] VITALS: BP_SYST 92
[2020-10-27] MEDS ORDERED: MENTHOL/ZINC OXIDE 113 GM OINT. TP PRN (20:15)
[2020-10-28] MEDS: AMPICILLIN SODIUM/SULBACTAM NA 3 GM in NS 100 ML IV SCH ×5 (00:12→23:45)
[2020-10-28 00:39] VITALS: BP_SYST 98
[2020-10-28] MEDS: LR 1,000 ML IV SCH ×2 (06:57→18:19)
[2020-10-28 06:59] LABS: BASOPHILS # (AUTO) 0.1 K/uL (0.0-0.2); BASOPHILS % (AUTO) 0.7 % (0.0-2.0); EOSINOPHILS # (AUTO) 0.1 K/uL (0.0-0.4); EOSINOPHILS % (AUTO) 1.3 % (0.0-4.0); HEMATOCRIT 28.3 % (36-48); HEMOGLOBIN 9.4 g/dL (12.0-16.0); LYMPHOCYTES # (AUTO) 2.1 K/uL (1.0-5.5); LYMPHOCYTES % (AUTO) 24.1 % (20.5-51.5); MEAN CORPUSCULAR HEMOGLOBIN 27 pg (27-31); MEAN CORPUSCULAR HGB CONC 33 % (32-36); MEAN CORPUSCULAR VOLUME 82 fL (79.0-98.0); MONOCYTES # (AUTO) 1.4 K/uL (0.0-1.0); MONOCYTES % (AUTO) 15.8 % (1.7-9.3); NEUTROPHILS # (AUTO) 5.2 K/uL (1.8-7.7); NEUTROPHILS % (AUTO) 58.1 % (40.0-70.0); PLATELET COUNT (AUTO) 488 K/uL (130-430); RED BLOOD CELL COUNT(AUTO) 3.45 MIL/uL (4.2-6.2); RED CELL DISTRIBUTION WIDTH 18.7 % (9.0-15.0); WHITE BLOOD COUNT (AUTO) 8.9 K/uL (4.8-10.8)
[2020-10-28] MEDS: NORMAL SALINE 5 ML DISP.SYRIN IVF SCH ×3 (07:00→22:16)
[2020-10-28 07:22] LABS: CALCIUM 8.5 mg/dL (8.4-11.0); CREATININE 0.29 mg/dL (0.55-1.30); POTASSIUM 3.8 mmol/L (3.5-5.1)
[2020-10-28 07:50] VITALS: BP_SYST 92
[2020-10-28 08:18] LABS: C-REACTIVE PROTEIN QUANT 21.9 mg/dL (0-0.5)
[2020-10-28] MEDS: FLUCONAZOLE 100 MG TABLET (DIFLUCAN) PO SCH (08:50)
[2020-10-28] MEDS: BALSAM PERU/CASTOR OIL 60 GM OINT...G. TP SCH (09:37)
[2020-10-28 10:15] LABS: ERYTHROCYTE SEDIMENTATION RATE 79 MM/HR (0-20)
[2020-10-28 12:43] VITALS: BP_SYST 92
[2020-10-28 17:00] VITALS: BP_SYST 90
[2020-10-28 20:00] VITALS: BP_SYST 91
[2020-10-29] VITALS: BP_SYST 110
[2020-10-29] MEDS: LR 1,000 ML IV SCH ×3 (05:45→21:03)
[2020-10-29] MEDS: NORMAL SALINE 5 ML DISP.SYRIN IVF SCH ×3 (05:47→21:03)
[2020-10-29] MEDS: AMPICILLIN SODIUM/SULBACTAM NA 3 GM in NS 100 ML IV SCH ×4 (05:47→23:29)
[2020-10-29 07:45] VITALS: BP_SYST 91
[2020-10-29 08:23] LABS: BASOPHILS % (AUTO) 0.5 % (0.0-2.0); EOSINOPHILS # (AUTO) 0.1 K/uL (0.0-0.4); EOSINOPHILS % (AUTO) 1.7 % (0.0-4.0); HEMATOCRIT 28.3 % (36-48); HEMOGLOBIN 9.6 g/dL (12.0-16.0); LYMPHOCYTES % (AUTO) 24.4 % (20.5-51.5); MEAN CORPUSCULAR HEMOGLOBIN 28 pg (27-31); MEAN CORPUSCULAR HGB CONC 34 % (32-36); MEAN CORPUSCULAR VOLUME 83 fL (79.0-98.0); MONOCYTES # (AUTO) 1.2 K/uL (0.0-1.0); MONOCYTES % (AUTO) 14.2 % (1.7-9.3); NEUTROPHILS # (AUTO) 4.8 K/uL (1.8-7.7); NEUTROPHILS % (AUTO) 59.2 % (40.0-70.0); PLATELET COUNT (AUTO) 460 K/uL (130-430); RED BLOOD CELL COUNT(AUTO) 3.42 MIL/uL (4.2-6.2); RED CELL DISTRIBUTION WIDTH 18.9 % (9.0-15.0); WHITE BLOOD COUNT (AUTO) 8.2 K/uL (4.8-10.8)
[2020-10-29 08:27] LABS: CALCIUM 8.4 mg/dL (8.4-11.0); CREATININE 0.37 mg/dL (0.55-1.30); POTASSIUM 4.2 mmol/L (3.5-5.1)
[2020-10-29] MEDS: FLUCONAZOLE 100 MG TABLET (DIFLUCAN) PO SCH (08:47)
[2020-10-29] MEDS: BALSAM PERU/CASTOR OIL 60 GM OINT...G. TP SCH (08:48)
[2020-10-29 08:50] VITALS: BP_SYST 91
[2020-10-29 09:54] LABS: ERYTHROCYTE SEDIMENTATION RATE 81 MM/HR (0-20)
[2020-10-29 12:05] VITALS: BP_SYST 95
[2020-10-29 16:03] VITALS: BP_SYST 97
[2020-10-29 20:00] VITALS: BP_SYST 94
[2020-10-30] VITALS: BP_SYST 100
[2020-10-30 00:08] LABS: C-REACTIVE PROTEIN QUANT 18.2 mg/dL (0-0.5)
[2020-10-30] MEDS: LR 1,000 ML IV SCH ×2 (02:46→12:23)
[2020-10-30] MEDS: NORMAL SALINE 5 ML DISP.SYRIN IVF SCH ×3 (06:18→22:53)
[2020-10-30] MEDS: AMPICILLIN SODIUM/SULBACTAM NA 3 GM in NS 100 ML IV SCH ×3 (06:18→18:04)
[2020-10-30 07:51] LABS: BASOPHILS # (AUTO) 0.1 K/uL (0.0-0.2); BASOPHILS % (AUTO) 0.8 % (0.0-2.0); EOSINOPHILS # (AUTO) 0.2 K/uL (0.0-0.4); EOSINOPHILS % (AUTO) 2.3 % (0.0-4.0); HEMATOCRIT 29.6 % (36-48); HEMOGLOBIN 9.6 g/dL (12.0-16.0); LYMPHOCYTES # (AUTO) 1.8 K/uL (1.0-5.5); LYMPHOCYTES % (AUTO) 26.6 % (20.5-51.5); MEAN CORPUSCULAR HEMOGLOBIN 27 pg (27-31); MEAN CORPUSCULAR HGB CONC 32 % (32-36); MEAN CORPUSCULAR VOLUME 83 fL (79.0-98.0); MONOCYTES # (AUTO) 0.9 K/uL (0.0-1.0); MONOCYTES % (AUTO) 13.9 % (1.7-9.3); NEUTROPHILS # (AUTO) 3.8 K/uL (1.8-7.7); NEUTROPHILS % (AUTO) 56.4 % (40.0-70.0); PLATELET COUNT (AUTO) 442 K/uL (130-430); RED BLOOD CELL COUNT(AUTO) 3.58 MIL/uL (4.2-6.2); RED CELL DISTRIBUTION WIDTH 18.9 % (9.0-15.0); WHITE BLOOD COUNT (AUTO) 6.8 K/uL (4.8-10.8)
[2020-10-30 08:13] VITALS: BP_SYST 117
[2020-10-30] MEDS: FLUCONAZOLE 100 MG TABLET (DIFLUCAN) PO SCH (08:37)
[2020-10-30] MEDS: BALSAM PERU/CASTOR OIL 60 GM OINT...G. TP SCH (08:38)
[2020-10-30 08:44] LABS: CALCIUM 8.6 mg/dL (8.4-11.0); CREATININE 0.33 mg/dL (0.55-1.30)
[2020-10-30 10:50] LABS: ERYTHROCYTE SEDIMENTATION RATE 86 MM/HR (0-20)
[2020-10-30 12:34] VITALS: BP_SYST 89
[2020-10-30 16:27] LABS: C-REACTIVE PROTEIN QUANT 44.4 mg/dL (0-0.5)
[2020-10-30 16:35] VITALS: BP_SYST 92
[2020-10-30 20:00] VITALS: BP_SYST 97
[2020-10-31] MEDS: LR 1,000 ML IV SCH (00:24)
[2020-10-31] MEDS: AMPICILLIN SODIUM/SULBACTAM NA 3 GM in NS 100 ML IV SCH ×4 (00:26→17:03)
[2020-10-31 00:30] VITALS: BP_SYST 89
[2020-10-31 06:37] LABS: BASOPHILS # (AUTO) 0.1 K/uL (0.0-0.2); BASOPHILS % (AUTO) 0.8 % (0.0-2.0); EOSINOPHILS # (AUTO) 0.2 K/uL (0.0-0.4); HEMATOCRIT 28.7 % (36-48); HEMOGLOBIN 9.5 g/dL (12.0-16.0); LYMPHOCYTES # (AUTO) 1.7 K/uL (1.0-5.5); LYMPHOCYTES % (AUTO) 28.1 % (20.5-51.5); MEAN CORPUSCULAR HEMOGLOBIN 27 pg (27-31); MEAN CORPUSCULAR HGB CONC 33 % (32-36); MEAN CORPUSCULAR VOLUME 82 fL (79.0-98.0); MONOCYTES # (AUTO) 0.9 K/uL (0.0-1.0); MONOCYTES % (AUTO) 13.7 % (1.7-9.3); NEUTROPHILS # (AUTO) 3.4 K/uL (1.8-7.7); NEUTROPHILS % (AUTO) 54.4 % (40.0-70.0); PLATELET COUNT (AUTO) 391 K/uL (130-430); RED BLOOD CELL COUNT(AUTO) 3.49 MIL/uL (4.2-6.2); RED CELL DISTRIBUTION WIDTH 18.8 % (9.0-15.0); WHITE BLOOD COUNT (AUTO) 6.2 K/uL (4.8-10.8)
[2020-10-31] MEDS: NORMAL SALINE 5 ML DISP.SYRIN IVF SCH ×3 (06:43→22:00)
[2020-10-31 07:42] LABS: CALCIUM 8.2 mg/dL (8.4-11.0); CREATININE 0.32 mg/dL (0.55-1.30); POTASSIUM 3.6 mmol/L (3.5-5.1)
[2020-10-31 07:56] VITALS: BP_SYST 97
[2020-10-31] MEDS: FLUCONAZOLE 100 MG TABLET (DIFLUCAN) PO SCH (08:40)
[2020-10-31] MEDS: BALSAM PERU/CASTOR OIL 60 GM OINT...G. TP SCH (08:41)
[2020-10-31 08:43] LABS: ERYTHROCYTE SEDIMENTATION RATE 76 MM/HR (0-20)
[2020-10-31 10:47] LABS: C-REACTIVE PROTEIN QUANT 13.6 mg/dL (0-0.5)
[2020-10-31 12:46] VITALS: BP_SYST 102
[2020-10-31 16:50] VITALS: BP_SYST 94
[2020-10-31 20:02] VITALS: BP_SYST 97
[2020-11-01 00:35] VITALS: BP_SYST 88
[2020-11-01] MEDS: AMPICILLIN SODIUM/SULBACTAM NA 3 GM in NS 100 ML IV SCH ×6 (06:00→23:13)
[2020-11-01] MEDS: NORMAL SALINE 5 ML DISP.SYRIN IVF SCH ×3 (06:00→21:25)
[2020-11-01 07:25] LABS: BASOPHILS # (AUTO) 0.1 K/uL (0.0-0.2); BASOPHILS % (AUTO) 0.8 % (0.0-2.0); EOSINOPHILS # (AUTO) 0.1 K/uL (0.0-0.4); EOSINOPHILS % (AUTO) 1.2 % (0.0-4.0); HEMATOCRIT 29.3 % (36-48); HEMOGLOBIN 9.7 g/dL (12.0-16.0); LYMPHOCYTES # (AUTO) 1.5 K/uL (1.0-5.5); LYMPHOCYTES % (AUTO) 20.8 % (20.5-51.5); MEAN CORPUSCULAR HEMOGLOBIN 27 pg (27-31); MEAN CORPUSCULAR HGB CONC 33 % (32-36); MEAN CORPUSCULAR VOLUME 82 fL (79.0-98.0); MONOCYTES % (AUTO) 13.9 % (1.7-9.3); NEUTROPHILS # (AUTO) 4.6 K/uL (1.8-7.7); NEUTROPHILS % (AUTO) 63.3 % (40.0-70.0); PLATELET COUNT (AUTO) 404 K/uL (130-430); RED BLOOD CELL COUNT(AUTO) 3.56 MIL/uL (4.2-6.2); RED CELL DISTRIBUTION WIDTH 18.8 % (9.0-15.0); WHITE BLOOD COUNT (AUTO) 7.3 K/uL (4.8-10.8)
[2020-11-01 07:40] LABS: INR 1.1 (0.8-1.2); PROTHROMBIN TIME 10.9 SECS (9.5-12.5)
[2020-11-01 08:00] VITALS: BP_SYST 98
[2020-11-01 08:03] LABS: ALBUMIN 1.6 g/dL (3.4-4.8); CALCIUM 7.9 mg/dL (8.4-11.0); CREATININE 0.31 mg/dL (0.55-1.30); POTASSIUM 3.5 mmol/L (3.5-5.1); TOTAL BILIRUBIN 0.1 mg/dL (0.0-1.0)
[2020-11-01] MEDS: FLUCONAZOLE 100 MG TABLET (DIFLUCAN) PO SCH (10:10)
[2020-11-01 11:33] LABS: C-REACTIVE PROTEIN QUANT 15.7 mg/dL (0-0.5)
[2020-11-01 12:03] VITALS: BP_SYST 102
[2020-11-01 12:19] LABS: ERYTHROCYTE SEDIMENTATION RATE 85 MM/HR (0-20)
[2020-11-01 16:05] VITALS: BP_SYST 94
[2020-11-01] MEDS: BALSAM PERU/CASTOR OIL 60 GM OINT...G. TP SCH (18:24)
[2020-11-01 20:00] VITALS: BP_SYST 102
[2020-11-02] VITALS: BP_SYST 102
[2020-11-02] MEDS: AMPICILLIN SODIUM/SULBACTAM NA 3 GM in NS 100 ML IV SCH ×3 (05:20→18:18)
[2020-11-02] MEDS: NORMAL SALINE 5 ML DISP.SYRIN IVF SCH (05:20)
[2020-11-02 06:56] LABS: BASOPHILS % (AUTO) 0.4 % (0.0-2.0); EOSINOPHILS # (AUTO) 0.1 K/uL (0.0-0.4); EOSINOPHILS % (AUTO) 1.3 % (0.0-4.0); HEMATOCRIT 30.2 % (36-48); LYMPHOCYTES # (AUTO) 1.7 K/uL (1.0-5.5); LYMPHOCYTES % (AUTO) 24.4 % (20.5-51.5); MEAN CORPUSCULAR HEMOGLOBIN 27 pg (27-31); MEAN CORPUSCULAR HGB CONC 33 % (32-36); MEAN CORPUSCULAR VOLUME 82 fL (79.0-98.0); MONOCYTES # (AUTO) 1.1 K/uL (0.0-1.0); MONOCYTES % (AUTO) 16.2 % (1.7-9.3); NEUTROPHILS # (AUTO) 4.1 K/uL (1.8-7.7); NEUTROPHILS % (AUTO) 57.7 % (40.0-70.0); PLATELET COUNT (AUTO) 366 K/uL (130-430); RED BLOOD CELL COUNT(AUTO) 3.66 MIL/uL (4.2-6.2); RED CELL DISTRIBUTION WIDTH 18.8 % (9.0-15.0); WHITE BLOOD COUNT (AUTO) 7.1 K/uL (4.8-10.8)
[2020-11-02 07:27] LABS: CREATININE 0.34 mg/dL (0.55-1.30); POTASSIUM 3.6 mmol/L (3.5-5.1)
[2020-11-02 08:00] VITALS: BP_SYST 92
[2020-11-02 10:10] LABS: C-REACTIVE PROTEIN QUANT 20.5 mg/dL (0-0.5)
[2020-11-02 10:46] LABS: ERYTHROCYTE SEDIMENTATION RATE 75 MM/HR (0-20)
[2020-11-02 11:39] VITALS: BP_SYST 97
[2020-11-02] MEDS: BALSAM PERU/CASTOR OIL 60 GM OINT...G. TP SCH (12:09)
[2020-11-02 16:46] VITALS: BP_SYST 94
[2020-11-02 19:25] VITALS: BP_SYST 96
[2020-11-02 20:00] VITALS: BP_SYST 96
== END 2020-11-02 23:35 | DRG 710 ==
LOC: SED 13:24 → SIC 19:01 → STU 10-13 11:51 → SMU 10-16 15:13 → STU 10-27 00:44 → SMU 10-27 11:07 → STU 10-28 08:24
PROVIDERS: ADMIT Preventive Medicine Preventive Medicine/Occupational Environmental Medicine; ATTEND Preventive Medicine Preventive Medicine/Occupational Environmental Medicine
PROC: 0JRM07Z Replacement of Left Upper Leg Subcutaneous Tissue and Fascia with Autologous Tissue Substitute, Open Approach (ICD-10-PCS; 2020-10-13)
PROC: 0QB90ZZ Excision of Left Femoral Shaft, Open Approach (ICD-10-PCS; principal; 2020-10-13 12:30)
PROC: 30233N1 Transfusion of Nonautologous Red Blood Cells into Peripheral Vein, Percutaneous Approach (ICD-10-PCS; 2020-10-16)
PROC: 0QB70ZZ Excision of Left Upper Femur, Open Approach (ICD-10-PCS; 2020-10-25)
PROC: 2W1PX6Z Compression of Left Upper Leg using Pressure Dressing (ICD-10-PCS; 2020-10-25)
PROC: 0HRJXK3 Replacement of Left Upper Leg Skin with Nonautologous Tissue Substitute, Full Thickness, External Approach (ICD-10-PCS; 2020-10-25)
DX: A41.50 Gram-negative sepsis, unspecified (principal); L03.114 Cellulitis of left upper limb; L02.214 Cutaneous abscess of groin; M72.6 Necrotizing fasciitis; E87.1 Hypo-osmolality and hyponatremia; D64.9 Anemia, unspecified; E83.52 Hypercalcemia; E87.6 Hypokalemia; G80.9 Cerebral palsy, unspecified; D72.829 Elevated white blood cell count, unspecified; E80.6 Other disorders of bilirubin metabolism; E88.09 Other disorders of plasma-protein metabolism, not elsewhere classified; D47.3 Essential (hemorrhagic) thrombocythemia; R74.01 Elevation of levels of liver transaminase levels; Z20.822 Contact with and (suspected) exposure to COVID-19; Q05.9 Spina bifida, unspecified; E43 Unspecified severe protein-calorie malnutrition
CPT/HCPCS: 36415; 71045; 72192-TC; 76376; 80048; 80053; 80170-TC; 81000-TC; 83735-TC; 84100-TC; 84484; 85007; 85025; 85027; 85610-TC; 85651-TC; 85730-TC; 86140; 86886; 86900; 86901; 86920; 87040-TC; 87070; 87070-TC; 87075-TC; 87081; 87086; 88305; 93005; 96365; 96368; 96375; 97110-GP; 97112-GP; 97530-GP; 99291; A4371; A4421; A6550; C1751; G0378; J0295; J1580; J2250; J2405; J2543; J3010; J3370; J3475; J3490; J7030; J7050; J7060; J7120; P9021; Q4118; Q4166